=== PATIENT | female | born 1930 | race Caucasian/White ===

== ENCOUNTER 2017-10-28 00:30 | Inpatient (IN) | payer MEDICARE, OTHER ==
[~2017-10-28] VITALS: Ht 157.5 cm; Wt 55.6 kg
[2017-10-28 01:53] LABS: BASOPHILS 0.1 % (0-2); HEMOGLOBIN 12.8 g/dL (12-16); IMMATURE GRANULOCYTES 0.2 % (0-5); LYMPHOCYTES 11.4 % (15-50); MCH 30.5 pg (26.0-34.0); MCHC 33.7 g/dL (31.0-37.0); MCV 90.5 fL (80.0-100.0); MEAN PLATELET VOLUME 9.5 fL (7.4-10.4); MONOCYTES 3.2 % (2-11); NEUTROPHILS 84.1 % (40-80); RDW 12.7 % (11.5-14.5); WBC 11.4 10x3/uL (4.8-10.8)
[2017-10-28 01:56] LABS: PLATELET COUNT 212 10x3/uL (130-400)
[2017-10-28 02:08] LABS: APTT 27.1 SECONDS (22.8-39.4); INR 1.04 (0.85-1.17); PROTIME 13.2 SECONDS (11.6-15.0)
--- NOTE | 2017-10-28 02:09 | NUR ---
CALLED TO GET TELEMETRY, THEY STATED THEY DO NOT HAVE A SPOT/MONITOR AVAILABLE
[2017-10-28 02:14] LABS: ALBUMIN 3.7 g/dL (3.4-5.0); ANION GAP 11.9 mmol/L (8-16); BILIRUBIN - TOTAL 0.49 mg/dL (0.2-1.3); CALCIUM 8.9 mg/dL (8.5-10.1); CARBON DIOXIDE 29.9 mmol/L (21.0-32.0); CREATININE - SERUM 0.9 mg/dL (0.6-1.3); POTASSIUM - SERUM 3.8 mmol/L (3.5-5.1); PROTEIN - SERUM 7.4 g/dL (6.4-8.2)
[2017-10-28 02:44] VITALS: BP 151/74; BMI 22.4
--- NOTE | 2017-10-28 04:42 | NUR ---
PLACED TELEMETRY ON
--- NOTE | 2017-10-28 07:25 | NUR ---
REPORT RECEIVED FROM HOUSEKEEPING AIDE NURSE. CALL LIGHT IN REACH.
[2017-10-28 08:10] VITALS: BP 154/77
--- NOTE | 2017-10-28 08:13 | NUR ---
ASSESSMENT COMPLETED. MORPHINE 4 MG SIVP PER C/O PAIN OF 5. VISITOR IN ROOM. BED ALARM ON. CALL LIGHT IN REACH. WILL CONTINUE WITH PLAN OF CARE.
--- NOTE | 2017-10-28 10:00 | NUR ---
STATES PAIN HAS DECREASED TO A 4 AT THIS TIME
--- NOTE | 2017-10-28 11:00 | NUR ---
CONSENT FORMS FOR SURGERY SIGNED AND WITNESSED
--- NOTE | 2017-10-28 11:35 | NUR ---
PREOP MEDS ADMINISTERED WITH PREOPS MEDS. MORPHINE 4 MG SIVP PER C/O PAIN OF 5.
--- NOTE | 2017-10-28 11:50 | NUR ---
TO OR VIA BED.
[2017-10-28] MEDS ORDERED: BAYER CHEWABLE81 MG PO (12:03)
[2017-10-28] MEDS ORDERED: MULTIPLE VITAMI1 TA1 PO (12:03)
[2017-10-28] MEDS ORDERED: TRAZODONE HCL150 MG PO (12:13)
[2017-10-28] MEDS ORDERED: BETAPACE 80 MG80 MG PO (12:14)
[2017-10-28] MEDS ORDERED: LIPITOR20 MG PO (12:14)
[2017-10-28] MEDS ORDERED: ULTRAM50 MG PO (12:15)
[2017-10-28] MEDS ORDERED: MOBIC7.5 MG PO ×2 (12:16)
[2017-10-28] MEDS ORDERED: NORVASC5 MG PO (12:16)
[2017-10-28] MEDS ORDERED: PRINIVIL10 MG PO (12:17)
[2017-10-28 12:46] VITALS: Ht 157.5 cm; Wt 55.6 kg
[2017-10-28 15:29] VITALS: BP 139/60
--- NOTE | 2017-10-28 15:30 | NUR ---
BACK TO ROOM AT THIS TIME. WIDE AWAKE. VSS. CUP OF ICE WATER GIVEN TO PATIENT. FAMILY IN ROOM. CALL LIGHT IN REACH. WILL CONTINUE WITH PLAN OF CARE.
--- NOTE | 2017-10-28 16:04 | NUR ---
RESTING QUIETLY IN BED. A/O X3. FAMILY AT BEDSIDE. DENIES NEEDS. NO C/O PAIN.
--- NOTE | 2017-10-28 17:50 | NUR ---
NEW MEDS ADMINISTERED. CALL LIGHT IN REACH.
--- NOTE | 2017-10-28 18:36 | NUR ---
NO CHANGES IN INITIAL ASSESSMENT. CALL LIGHT IN REACH. BED ALARM ON. WILL CONTINUE WITH PLAN OF CARE,
[2017-10-28 20:00] VITALS: BP 126/68
[2017-10-29] VITALS: BP 151/64
[2017-10-29 04:00] VITALS: BP 150/72
[2017-10-29 05:36] LABS: BASOPHILS 0.1 % (0-2); EOSINOPHILS 2.8 % (0-7); IMMATURE GRANULOCYTES 0.1 % (0-5); LYMPHOCYTES 12.3 % (15-50); MCH 30.2 pg (26.0-34.0); MCHC 33.2 g/dL (31.0-37.0); MCV 90.9 fL (80.0-100.0); MEAN PLATELET VOLUME 9.5 fL (7.4-10.4); MONOCYTES 5.9 % (2-11); NEUTROPHILS 78.8 % (40-80); RDW 12.9 % (11.5-14.5)
[2017-10-29 05:41] LABS: HEMATOCRIT 27.1 % (36.0-48.0); PLATELET COUNT 168 10x3/uL (130-400); RBC 2.98 10x6/uL (4.00-5.40); WBC 8.3 10x3/uL (4.8-10.8)
[2017-10-29 05:54] LABS: ANION GAP 9.5 mmol/L (8-16); BILIRUBIN - TOTAL 0.4 mg/dL (0.2-1.3); CALCIUM 7.8 mg/dL (8.5-10.1); CARBON DIOXIDE 26.4 mmol/L (21.0-32.0); CREATININE - SERUM 0.9 mg/dL (0.6-1.3); POTASSIUM - SERUM 3.9 mmol/L (3.5-5.1)
[2017-10-29 05:57] LABS: ALBUMIN 2.4 g/dL (3.4-5.0); PROTEIN - SERUM 5.2 g/dL (6.4-8.2)
--- NOTE | 2017-10-29 08:00 | NUR ---
ASSESSMENT PER FLOW SHEET.PT WITHOUT DISTRESS. DRESSING TO LEFT LEG INTACT.FALL PREVENTION IN PLACE.RICHARD MAT ON AND WORKING
[2017-10-29 08:45] VITALS: BP 150/71
--- NOTE | 2017-10-29 09:10 | NUR ---
BAKER DCD ORDERED, 350CC EMPTIED FROM BAG.
--- NOTE | 2017-10-29 09:16 | NUR ---
Dietary consult ordered, 10/29. Full nutritional assessment completed on 10/28. Diet has advanced to regular. Pt consumed 75% of dinner on regular diet. Chart reviewed. RD to follow-romi corley MS RD LD
--- NOTE | 2017-10-29 12:00 | NUR ---
HAS VOIDED 350CC OF URINE IN BEDPAN
[2017-10-29 13:33] VITALS: BP 137/55
--- NOTE | 2017-10-29 16:00 | NUR ---
C/O PAIN IN LEG AND PT VERY ANXIOUS.MEDS ORDERED PER MAR
[2017-10-29 16:45] VITALS: BP 183/80
[2017-10-29 20:00] VITALS: BP 156/90
[2017-10-30] VITALS: BP 140/77
[2017-10-30 04:00] VITALS: BP 139/80
[2017-10-30 04:52] LABS: BASOPHILS 0.2 % (0-2); EOSINOPHILS 1.1 % (0-7); HEMATOCRIT 27.5 % (36.0-48.0); HEMOGLOBIN 9.3 g/dL (12-16); IMMATURE GRANULOCYTES 0.2 % (0-5); MCH 30.3 pg (26.0-34.0); MCHC 33.8 g/dL (31.0-37.0); MCV 89.6 fL (80.0-100.0); MEAN PLATELET VOLUME 9.2 fL (7.4-10.4); MONOCYTES 5.1 % (2-11); NEUTROPHILS 85.4 % (40-80); PLATELET COUNT 159 10x3/uL (130-400); RBC 3.07 10x6/uL (4.00-5.40); WBC 10.2 10x3/uL (4.8-10.8)
[2017-10-30 05:39] LABS: ALBUMIN 2.7 g/dL (3.4-5.0); ALKALINE PHOSPHATASE 81 U/L (46-116); ALT (SGPT) 17 U/L (10-68); CALC OSMOLALITY 266 mosm/kg (275-300); CALCIUM 8.2 mg/dL (8.5-10.1); CARBON DIOXIDE 27.8 mmol/L (21.0-32.0); CHLORIDE - SERUM 98 mmol/L (98-107); CREATININE - SERUM 0.7 mg/dL (0.6-1.3); GLUCOSE 149 mg/dL (74-106); POTASSIUM - SERUM 3.1 mmol/L (3.5-5.1); SODIUM 132 mmol/L (136-145); UREA NITROGEN 9 mg/dL (7-18); eGFR NON AFRICAN AMERICAN 83 mL/min (90-120)
--- NOTE | 2017-10-30 08:00 | NUR ---
ASSESSMENT PER FLOW SHEET. PT WITHOUT DISTRESS.MONITOR
--- NOTE | 2017-10-30 08:42 | OP ---
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 PROCEDURE: Retrograde intramedullary nailing of the above fracture of the left knee. SURGEON: Tran Sloan MD ANESTHESIA: General. INTRAOPERATIVE COMPLICATIONS: None. SUMMARY OF PATHOLOGIC FINDINGS: There is a very nice clean transverse fracture that was not responsible to closed reduction; therefore, full on open reduction and internal fixation was utilized. IMPLANTS USED: [employer] T2 retrograde nail 200 x 13. OPERATIVE SUMMARY IN DETAIL: After obtaining the appropriate preoperative orthopedic surgery consent as well as anesthetic consultation, evaluation and clearance, the patient was brought to the operating room and placed on the operating table in supine position. After adequate spinal anesthesia was administered, tourniquet was placed about the proximal aspect of the left upper extremity. Left upper extremity was prepped and draped in routine sterile fashion. The leg was elevated and exsanguinated, tourniquet inflated to 350 mmHg. After several attempts to try to bring the distal femur back anteriorly, it was noted that the superior flange of the total knee was somewhat locked, therefore a full arthrotomy was performed and reduction was very easy using a Carter bringing the knee back into an anatomic position. Central guide pin was placed fluoroscopically on AP and lateral planes. Primary reaming was then followed by inserting the long ball-tipped guidewire. Reaming was done size 13.5, size 13 x 200 retrograde nail was tamped into place to the appropriate depth and then screws 1, 3, and 4 were put into placed distally for good locking. Slight compression was placed here to be sure that there was good compression across the fracture and then the proximal locking guide was used to place the 2 bicortical interlocking screws, all again done under fluoroscopic assistance. Finally, final radiographs were taken and submitted to x-ray for radiologist review. The wound was copiously irrigated. Paramedian arthrotomy was closed with #2 Ethibond followed #1 Vicryl, 2-0 Vicryl, and skin cesilia. Sterile dressings were applied. The patient was awakened and taken to recovery room in stable condition. All final needle and sponge counts were correct. TRANSINT:[id number] Voice Confirmation ID: [id number] DOCUMENT ID: [id number] OPERATIVE REPORT [id number] ERIC MONTEZ MD, TRAN APPIAH at 0842 CC: [id number] DICTATION DATE: 10/28/17 1443 PERMIT AGENT: 10/28/17 1523 ADM IN [place] [id number] [place] [phone]
[2017-10-30 09:11] VITALS: BP 155/68
[2017-10-30 11:59] VITALS: BP 159/74
--- NOTE | 2017-10-30 16:17 | NUR ---
Patient's plan at discharge is to go to [facility] in [place], [place]. She has been medicated and is resting. Family states that is the plan. Cm will fax referral for review in the AM.
[2017-10-30 16:19] VITALS: BP 150/72
--- NOTE | 2017-10-30 19:07 | NUR ---
REMAINS WITHOUT DISTRESS.AMBULATING IN HALLS AND HAS REQUETED IV MORPHINE.
[2017-10-30 20:00] VITALS: BP 144/77
[2017-10-31 04:00] VITALS: BP 139/69
[2017-10-31 05:45] LABS: BASOPHILS 0.1 % (0-2); HEMATOCRIT 27.6 % (36.0-48.0); HEMOGLOBIN 9.3 g/dL (12-16); IMMATURE GRANULOCYTES 0.3 % (0-5); LYMPHOCYTES 12.4 % (15-50); MCH 30.4 pg (26.0-34.0); MCHC 33.7 g/dL (31.0-37.0); MCV 90.2 fL (80.0-100.0); MONOCYTES 8.6 % (2-11); NEUTROPHILS 77.6 % (40-80); PLATELET COUNT 179 10x3/uL (130-400); RBC 3.06 10x6/uL (4.00-5.40); RDW 13.1 % (11.5-14.5)
[2017-10-31 06:06] LABS: ALBUMIN 2.5 g/dL (3.4-5.0); ALKALINE PHOSPHATASE 80 U/L (46-116); BILIRUBIN - TOTAL 0.65 mg/dL (0.2-1.3); CALC OSMOLALITY 272 mosm/kg (275-300); CALCIUM 8.2 mg/dL (8.5-10.1); CARBON DIOXIDE 31.4 mmol/L (21.0-32.0); CHLORIDE - SERUM 101 mmol/L (98-107); CREATININE - SERUM 0.7 mg/dL (0.6-1.3); GLUCOSE 102 mg/dL (74-106); POTASSIUM - SERUM 3.9 mmol/L (3.5-5.1); PROTEIN - SERUM 5.5 g/dL (6.4-8.2); SODIUM 137 mmol/L (136-145); UREA NITROGEN 10 mg/dL (7-18); eGFR NON AFRICAN AMERICAN 83 mL/min (90-120)
[2017-10-31 06:07] LABS: ALT (SGPT) 12 U/L (10-68)
[2017-10-31 09:57] VITALS: BP 121/61
[2017-10-31] MEDS ORDERED: ELIQUIS2.5 MG PO (11:02)
[2017-10-31 12:57] VITALS: BP 173/71
[2017-10-31] MEDS ORDERED: VALIUM5 MG PO (15:00)
--- NOTE | 2017-10-31 15:43 | NUR ---
LATE ENTRY 1043 TC TO [facility] TO CONFIRM THAT FAXED REFERRAL WAS RECEIVED. THEY WERE IN THE PROCESS OF REVIEWING FOR ADMISSION. PATIENT AND FAMILY AWAIT APPROVAL FOR DISCHARGE TO SKILLED BED AT [facility]. THIS WAS THEIR FIRST CHOICE. 1400 RECEIVED CB THAT PATIENT HAS BEEN ACCEPTED. PLANNING FOR [facility] WILL PROVIDE TRANSPORTATION TO FACILITY BETWEEN 1500- 16OO TODAY. WILL BE DISCHARGED TO A SKILLED BED.
--- NOTE | 2017-10-31 16:10 | NUR ---
REPORT CALLED TO DOC ROCHA AT THIS TIME.
== END 2017-10-31 18:12 | DRG 481 ==
LOC: D.ER 00:30 → D.MS 01:31
PROVIDERS: Emergency Medicine; Orthopaedic Surgery; ADMIT Family Medicine
PROC: 0QSC04Z Reposition Left Lower Femur with Internal Fixation Device, Open Approach (ICD-10-PCS; principal; 2017-10-28 12:00)
DX: S72.402A Unspecified fracture of lower end of left femur, initial encounter for closed fracture (principal); D62 Acute posthemorrhagic anemia; W19.XXXA Unspecified fall, initial encounter; I10 Essential (primary) hypertension; I25.10 Atherosclerotic heart disease of native coronary artery without angina pectoris; F41.9 Anxiety disorder, unspecified